=== PATIENT | male | born 1930 | race Caucasian/White ===

== ENCOUNTER 2017-01-13 22:30 | Inpatient (IN) | payer MEDICARE ==
--- NOTE | ~2017-01-13 | HP ---
History And Physical [id number] [place]. [address] NAME: JESSIE MARTINEZ : 34 STATUS : ADM Patrick PAT#: [id number] AGE: 86 ADM/REG DATE : 01/13/17 MR#: [id number] REPORT SERV DATE: 01/14/17 DICTATED BY: PORTIA RICHARDS DATE: 01/14/17 REPORT STATUS : Draft TRANSCRIBED BY: TEVIN DATE: 01/14/17 DATE OF ADMISSION: 01/13/2017 PROCESS CONTROL TECHNICIAN: Miguel Martinez M.D. CHIEF COMPLAINT: Chest pain. HISTORY OF PRESENT ILLNESS: This is a very pleasant, 86-year-old, white gentleman with known history of CAD with reported history of five stents and CABG x6 in 1990. The patient states that on 01/13 around 1700 after running several errands throughout the day he developed substernal chest pain that radiated to his left arm. He describes it as "just hurt and ache." He took 1 old nitroglycerin which relieved the chest pain but did not relieve the arm pain. He denies any shortness of breath, nausea, diaphoresis, dizziness, or belching with the incident. At its most intense, he rated the chest pain an 8/10. At time of interview in the Short Stay, he rates it a 3/10 reporting that it just recently returned. He describes this as a single event. He has had no episodes of chest pain with exertion. He states he is relatively active, mows his own grass, and is active around his property but is limited by arthritis. He is uncertain if these symptoms are somewhat similar to previous cardiac events. The patient denies any personal history of myocardial infarction, stroke, DVT, or pulmonary embolus. The patient denies any recent fever or chills, no palpitations, no syncopal episodes. Denies PND or orthopnea. PAST MEDICAL HISTORY: 1. CAD. a. History of reported 5 stents with 4 JONO to vein graft, to PDA in 2005. b. Status post CABG x6 in 1990 with GERBER to LAD, ANUPAMA, sequential side-to- side to first diagonal, and end-to-side to second diagonal, vein graft to first obtuse marginal, circumflex, and PDA. 2. Hypertension. 3. Dyslipidemia. 4. AODM. 5. Hypothyroid, on replacement. PAST SURGICAL HISTORY: 1. CABG x6, 1990, as above. 2. Bilateral cataract repair. 3. Melanoma, removed. SOCIAL HISTORY: He is with two children. He is retired, does not have a structured exercise routine. He is limited by his arthritis. Denies tobacco, alcohol, or illicit's. FAMILY HISTORY: No embolic events reported in first-degree relatives at an early age. REVIEW OF SYSTEMS: History And Physical [address] [address] NAME: JESSIE MARTINEZ : 34 STATUS : ADM Patrick PAT#: [id number] AGE: 86 ADM/REG DATE : 01/13/17 MR#: [id number] REPORT SERV DATE: 01/14/17 DICTATED BY: PORTIA RICHARDS DATE: 01/14/17 REPORT STATUS : Draft TRANSCRIBED BY: TEVIN DATE: 01/14/17 A 14-point review of systems performed, significant for HPI including unable to recall most recent home blood sugars and home blood pressure 162/60. Otherwise complete review of systems obtained and negative. ALLERGIES: PENICILLIN CAUSES A RASH. HOME MEDICATIONS: Vitamin C 500 mg daily, aspirin 81 mg daily, atenolol 50 mg daily, atorvastatin 40 mg daily, vitamin D 2000 units daily, clopidogrel 75 mg daily, gabapentin 200 mg nightly, isosorbide 30 mg daily, levothyroxine 25 mcg daily, lisinopril 5 mg daily, Glucophage 500 mg daily, nitroglycerin p.r.n., Ranexa 500 mg daily. PHYSICAL EXAMINATION: VITAL SIGNS: Blood pressure 174/81, pulse 66, respirations 20, temperature 97.9, O2 saturation 97% on room air, height 5 feet 11 inches, weight 159 pounds, BMI 22. GENERAL: Cooperative, in no apparent distress. HEENT: Pupils 2 mm, sclera nonicteric. Nares patent. Moist mucous membranes. No xanthelasma. NECK: Trachea midline, no thyromegaly. No JVD. No bruits. LYMPH: No cervical lymphadenopathy. No supraclavicular lymphadenopathy. RESPIRATORY: Unlabored respirations. Breath sounds clear bilaterally to posterior auscultation. No wheezes or rhonchi. CARDIOVASCULAR: Regular rate. No murmur, rub or gallop appreciated. Extremities without edema. Pulses 2+ bilaterally. ABDOMEN: Soft, nontender, nondistended, normal bowel sounds auscultated throughout. No organomegaly. SKIN: Warm, dry extremities. No pallor, or cyanosis. PSYCHIATRIC: Appropriate affect. Alert, oriented x3. LABORATORY DATA: 1. Troponin less than 0.02, 0.19, 0.25. Potassium 4.2, BUN 18, creatinine 1.05, glucose 152, magnesium 2.2. WBC 7.2, hemoglobin 14.0, hematocrit 40.9, platelet count 146. EKG, sinus rhythm, initially with a first-degree AV block. 2. MPI, 10/2011: Garrett stage 2, anterior septal and inferior lateral ischemia. Cath 11/2011 ([facility]): Severe three-vessel disease with 3/5 patent grafts. BRIM PRESSER of the vein graft to left circumflex and vein graft to OM. ASSESSMENT AND PLAN: 1. Rcd-JY-ywantur elevation myocardial infarction with most recent troponin of 0.25. The patient will be held n.p.o. for now. Discuss options with rounding physician. Consider catheterization with grafts today. Manage chest pain. Further recommendations forthcoming. 2. Coronary artery disease. Continue home medications. 3. Hypertension. Monitor blood pressure and continue home medications. 4. Dyslipidemia. Continue statin. 5. Adult onset diabetes mellitus. Hold metformin. Level 1 sliding scale correction. 6. Updated nitroglycerin script provided at discharge. History And Physical [address] [address] NAME: JESSIE MARTINEZ : 34 STATUS : ADM Patrick PAT#: [id number] AGE: 86 ADM/REG DATE : 01/13/17 MR#: [id number] REPORT SERV DATE: 01/14/17 DICTATED BY: PORTIA RICHARDS DATE: 01/14/17 REPORT STATUS : Draft TRANSCRIBED BY: TEVIN DATE: 01/14/17 TIO/TEVIN Portia Richards, MSN, ACUTE DIALYSIS REGISTERED NURSE-BC / [id number] CC: Portia Richards, MSN, ACUTE DIALYSIS REGISTERED NURSE- Willie Vale M.D. Miguel Martinez Jr., M.D.
[~2017-01-13 22:30] MED LIST: ATEN50 PO; HALF81 PO; IMDUR30 PO; LEVOTHROID25 MCG PO; LIPITOR40 PO; NITROSTAT0.4 MG SL; PLAVIX PO; PRIN5 PO; VITAMIN C100 MG PO
[2017-01-13 22:52] LABS: BASOPHILS 0.3 %; BASOPHILS ABSOLUTE 0.02 10/3/uL (0.0-0.16); EOSINOPHILS 2.4 %; EOSINOPHILS ABSOLUTE 0.17 10/3/uL (0.0-0.53); ER CBC TAT 0 Hrs 07 Mins; HEMATOCRIT 40.9 % (40.0-51.0); IMMATURE GRANULOCYTES 2.8 %; LYMPHOCYTES 28.5 %; LYMPHOCYTES ABSOLUTE 2.04 10/3/uL (0.67-4.30); MEAN CORPUS HGB CONC 34.2 g/dL (32.0-36.0); MEAN CORPUSCULAR HEMOGLOB 31.8 pg (26.0-34.0); MONOCYTES 8.7 %; MONOCYTES ABSOLUTE 0.62 10/3/uL (0.21-1.20); NEUTROPHILS 57.3 %; NEUTROPHILS ABSOLUTE 4.11 10/3/uL (2.02-8.40); PLATELET COUNT 146 10/3/uL (150-400); RBC DISTRIBUTION WIDTH 13.8 % (12.0-16.0); WHITE BLOOD CELLS 7.2 10/3/uL (4.5-10.5)
[2017-01-13 22:53] LABS: MANUAL DIFF NO %
[2017-01-13 23:02] LABS: INTERNATIONAL NORMAL RATI 1.1 UNITS (-); PARTIAL THROMBO TIME 25.7 SEC (22.5-37.2); PROTIME (NOT ORD) 14.1 SEC (12.0-14.5)
[2017-01-13 23:06] LABS: BUN (BLOOD UREA NITROGEN) 18 MG/DL (6-23); CALCIUM, SERUM 8.6 MG/DL (8.5-10.4); CHEST PAIN PROFILE TAT 0 Hrs 21 Mins; CHLORIDE, SERUM 103 MMOL/L (96-112); CO2 (CARBON DIOXIDE) 29 MMOL/L (24-34); CREATININE 1.05 MG/DL (0.70-1.30); GFR AFRICAN AMERICAN 75 ML/MIN (>=60); GFR NON AFRICAN AMERICAN 65 ML/MIN (>=60); GLUCOSE, SERUM 152 MG/DL (60-99); POTASSIUM, SERUM 4.2 MMOL/L (3.5-5.3); SODIUM, SERUM 140 MMOL/L (135-148); TROPONIN I <0.02 NG/ML (<0.05)
[2017-01-14] MEDS ORDERED: SYN.025B PO (01:37)
[2017-01-14] MEDS ORDERED: PLAVIX PO (01:39)
[2017-01-14] MEDS ORDERED: HALF81 PO (01:39)
[2017-01-14] MEDS ORDERED: ATEN50 PO (01:39)
[2017-01-14] MEDS ORDERED: RAN500 PO (01:41)
[2017-01-14] MEDS ORDERED: VITAMIN D31000 UNIT PO (01:41)
[2017-01-14] MEDS ORDERED: LIPITOR40 PO (01:42)
[2017-01-14] MEDS ORDERED: IMDUR30 PO (01:42)
[2017-01-14] MEDS ORDERED: VITC500 PO (01:42)
[2017-01-14] MEDS ORDERED: NITROSTAT0.4 MG SL (01:43)
[2017-01-14] MEDS ORDERED: NEUR100 PO (01:43)
[2017-01-14] MEDS ORDERED: GLUCPH PO (01:43)
[2017-01-14] MEDS ORDERED: PRIN5 PO (01:50)
[2017-01-14 08:57] LABS: TROPONIN I 0.29 NG/ML (<0.05)
[2017-01-14 09:48] LABS: CHOL/HDL RATIO(NOT ORDER) 2.5 (0-5)
== END 2017-01-15 09:27 | disposition home or self-care (01) | DRG 247 ==
LOC: ER 22:30 → SSU1 23:00
PROVIDERS: Clinical Nurse Specialist; Hospitalist
PROC: 027235Z Dilation of Coronary Artery, Three Arteries with Two Drug-eluting Intraluminal Devices, Percutaneous Approach (ICD-10-PCS; principal; 2017-01-14)
PROC: 4A023N7 Measurement of Cardiac Sampling and Pressure, Left Heart, Percutaneous Approach (ICD-10-PCS; 2017-01-14)
PROC: B2181ZZ Fluoroscopy of Left Internal Mammary Bypass Graft using Low Osmolar Contrast (ICD-10-PCS; 2017-01-14)
PROC: B2131ZZ Fluoroscopy of Multiple Coronary Artery Bypass Grafts using Low Osmolar Contrast (ICD-10-PCS; 2017-01-14)
PROC: B2111ZZ Fluoroscopy of Multiple Coronary Arteries using Low Osmolar Contrast (ICD-10-PCS; 2017-01-14)
DX: I21.4 Non-ST elevation (NSTEMI) myocardial infarction (principal); E11.9 Type 2 diabetes mellitus without complications; I25.810 Atherosclerosis of coronary artery bypass graft(s) without angina pectoris; Z95.1 Presence of aortocoronary bypass graft; I44.30 Unspecified atrioventricular block; I10 Essential (primary) hypertension; E78.5 Hyperlipidemia, unspecified; M19.90 Unspecified osteoarthritis, unspecified site; E78.00 Pure hypercholesterolemia, unspecified; Z88.0 Allergy status to penicillin; Z98.890 Other specified postprocedural states; Z85.820 Personal history of malignant melanoma of skin; Z85.89 Personal history of malignant neoplasm of other organs and systems
CPT/HCPCS: 71020; 80048; 80061; 82962; 83735; 84484; 85025; 85610; 85730; 93005; 93459; 99152; 99153; 99285; A9270-GY; C1725; C1760; C1769; C1874; C1887; C1894; C9604; J0360; J0583; J2250; J2405; J3010; Q9967